=== PATIENT | male | born 1940 | race Two or more races ===

== ENCOUNTER 2022-12-10 09:05 | Outpatient (CLI) | payer OTHER | END 2022-12-10 09:19 | disposition home or self-care (01) | LOC: SONOGRAMA 09:05 | PROVIDERS: ATTEND Internal Medicine Pulmonary Disease | DX: I25.9 Chronic ischemic heart disease, unspecified (principal); J91.8 Pleural effusion in other conditions classified elsewhere; I11.9 Hypertensive heart disease without heart failure; R06.09 Other forms of dyspnea ==